=== PATIENT | female | born 1965 | race Caucasian/White ===

== ENCOUNTER 2021-05-30 20:04 | Emergency (ER) | payer OTHER, SELFPAY ==
[2021-05-30 20:09] VITALS: BP 158/82; PULSE 81; RESP 18; TEMP 37; O2SAT 99
--- NOTE | 2021-05-30 20:11 | DI.RAD.S_ITS ---
PROCEDURE: XR ANKLE LT MIN 3V INDICATIONS: rolled ankle TECHNIQUE: 3 views of the ankle were acquired. COMPARISON: None. FINDINGS: Bones: Distal fibula fracture at the level of the syndesmosis. There is mild displacement. No dislocations. Ankle mortise is normally aligned. No suspicious bony lesions. Soft tissues: Swelling at the lateral malleolus. Trace tibiotalar joint effusion. Achilles tendon appears normal. IMPRESSION: Distal fibular fracture. Marcano B. Dictated by: Osiel Maurice M.D. on 05/30/2021 at 20:39 Approved by: Osiel Maurice M.D. on 05/30/2021 at 20:41
[2021-05-30 21:11] VITALS: BP 159/86; PULSE 82; O2SAT 100
--- NOTE | 2021-05-30 22:29 | ED.LOWEXIN ---
HPI - Extremity Injury (Lower) General Chief Complaint: Extremity Injury, Lower Stated Complaint: LT leg possibly broken, Time Seen by Provider: 05/30/21 22:29 Source: patient Mode of arrival: Wheelchair History of Present Illness HPI Narrative: 56-year-old woman with no specific medical problems stumbled this evening and suffered a mechanical fall injuring her left ankle. No other complaints of pain. She was unable to bear weight on the ankle in comes in for further evaluation Related Data Previous Rx's Medication Instructions Recorded oxycodone-acetaminophen 5 mg-325 1 tab PO Q6H PRN #15 tab 05/30/21 mg tablet Allergies Allergy/AdvReac Type Severity Reaction Status Date / Time Penicillins Allergy Verified 05/30/21 20:11 Review of Systems Review of Systems Narrative: Pertinent positive and negative findings as per HPI Remainder of review of systems is otherwise unremarkable for Constitutional: Fevers, chills, weakness ENT: No sore throat, neck pain, ear pain CV: Chest pain, palpitations, Respiratory: Cough, wheeze, dyspnea GI: Nausea, vomiting, diarrhea, Patient History Social History Smoking Status: Never smoker Smoking Status: Never smoker alcohol intake frequency: 0-2 drinks per day Exam Narrative Exam Narrative: General: Alert appropriate in no acute distress Respiratory: Able to speak in full sentences, no obvious respiratory distress Skin: No obvious rashes, warm and dry Neurologic: Grossly intact no obvious asymmetries or abnormalities Psych: appropriate insight and affect, cooperative Extremity: Left ankle is tender with some mild swelling to the lateral malleolus. Neurovascularly intact. Initial Vital Signs Initial Vital Signs: Vital Signs Temperature 98.6 F 05/30/21 20:09 Pulse Rate 81 05/30/21 20:09 Respiratory Rate 18 05/30/21 20:09 Blood Pressure 158/82 H 05/30/21 20:09 Pulse Oximetry 99 05/30/21 20:09 Procedures Orthopedic Splinting/Casting Left distal fibular fracture: Time of procedure: 22:48 Side: left Lower Extremity Injury Location: ankle Lower Extremity Immobilizer: posterior splint Other Orthopedic Equipment: crutches Post splinting neuro exam: intact Post splinting vascular exam: intact Placed by: Nursing Course Orders Ordered: Discontinued Medications Ibuprofen (Ibuprofen 400 Mg Tablet) 400 mg PO NOW ONE Stop: 05/30/21 22:43 Last Admin: 05/30/21 23:01 Dose: 400 mg Documented by: JOSE Oxycodone/Acetaminophen (Oxycodone/Acetaminophen 5/325 Tablet) 1 tab PO NOW ONE Stop: 05/30/21 22:43 Last Admin: 05/30/21 23:01 Dose: 1 tab Documented by: JOSE Oxycodone/Acetaminophen (Oxycodone/Apap 5/325 Prepack) 1 bottle MISC SEEINSTR ONE Stop: 05/30/21 22:43 Last Admin: 05/30/21 23:01 Dose: 1 bottle Documented by: JOSE Vital Signs Vital signs: Vital Signs - 8 hr 05/30/21 23:09 Pulse Rate 80 Blood Pressure 173/79 H Pulse Oximetry 93 [facility] - Extremity Injury (Lower) Imaging Data Xray ankle: Radiologist's Impression: FINDINGS:? ? Bones:? Distal fibula fracture at the level of the syndesmosis.? There is mild displacement.? No dislocations.? Ankle mortise is normally aligned.? No suspicious bony lesions.? ? Soft tissues:? Swelling at the lateral malleolus.? Trace tibiotalar joint effusion.? Achilles tendon appears normal.? ? ? IMPRESSION:? Distal fibular fracture. Marcano B. ? Dictated by: Osiel Maurice M.D. on 05/30/2021 at 20:39 ? ? [facility] Narrative Medical decision making narrative: 56-year-old woman with mechanical fall and a left distal fibular fracture that is stable. She is placed in a posterior short leg splint. Pain control is addressed she is given a brief prescription for Percocet. She is currently visiting from [place] and her primary care provider is at [facility]. She will need follow-up with a orthopedic doctor when she returns to [place]. She is safe for home discharge Discharge Plan Departure Patient Disposition: Home Clinical Impression: Ankle fracture Qualifiers: Encounter type: initial encounter Fracture type: closed Laterality: left Qualified Code(s): S82.892A - Other fracture of left lower leg, initial encounter for closed fracture Instructions: DI for Ankle Fracture Activity Restrictions/Additional Instructions: Thank you for coming in today You did break your ankle, the outside bone and does not involve the joint. This is technically called a distal fibular fracture and it is stable. Please do expect some pain and swelling. Using crutches until your able to tolerate a bit of weight bearing will be required. It is okay to put a small amount of weight on the ankle if you need to. Using 400 mg of ibuprofen (2 [id number] pills) and 1 Tylenol every 6 hours can be very helpful in controlling pain. For severe pain 400 mg of ibuprofen and 1 Percocet would be appropriate. You will need to follow-up with an orthopedic surgeon when she return to [place] for definitive treatment of this ankle fracture. I hope you heal quickly Prescriptions: New oxycodone-acetaminophen 5-325 mg tablet 1 tab PO Q6H PRN (Reason: pain) Qty: 15 RF: 0
[2021-05-30] MEDS: OXYCODONE/ACETAMINOPHEN 5/325 TABLET 1 TAB PO (23:01)
[2021-05-30] MEDS: IBUPROFEN 400 MG TABLET PO (23:01)
[2021-05-30] MEDS: OXYCODONE/APAP 5/325 PREPACK 1 BOTTLE MISC (23:01)
[2021-05-30 23:09] VITALS: BP 173/79; PULSE 80; O2SAT 93
== END 2021-05-30 23:19 | disposition home or self-care (01) ==
PROVIDERS: Emergency Provider Emergency Medicine
DX: S82.892A Other fracture of left lower leg, initial encounter for closed fracture (principal); W19.XXXA Unspecified fall, initial encounter
CPT/HCPCS: 29515; 73610; 99283; 99284